=== PATIENT | male | born 1975 | race Caucasian/White ===

== ENCOUNTER 2017-06-19 17:04 | Emergency (ER) | payer OTHER ==
[2017-06-19 17:34] VITALS: BMI 27.3
[2017-06-19 17:36] VITALS: TEMP 98.1
--- NOTE | 2017-06-19 18:32 | C.PDOC ---
History Of Present Illness 42 y/o male presents to ED with complaints of right foot swelling for 1 month. ( +) pain with walking. Patient was seen by PMD - Dr. Moran for evaluation who ordered xray, labs, and doppler with negative results. (Copies of labs reviewed ) Patient denies fever, recent trauma, n/v/d, weakness, numbness or any other complaints at this time. Time Seen by Provider: 06/19/17 17:50 Chief Complaint (Nursing): Lower Extremity Problem/Injury History Per: Patient History/Exam Limitations: no limitations Onset/Duration Of Symptoms: Days Current Symptoms Are (Timing): Still Present Past Medical History Reviewed: Historical Data, Nursing Documentation, Vital Signs Vital Signs: Last Vital Signs Temp 98.1 F 06/19/17 17:36 Pulse 78 06/19/17 19:41 Resp 16 06/19/17 19:41 BP 125/74 06/19/17 19:41 Pulse Ox 95 06/19/17 20:29 Family History: States: No Known Family Hx - Social History Hx Alcohol Use: Yes Hx Substance Use: No - Immunization History Hx Tetanus Toxoid Vaccination: No Hx Influenza Vaccination: No Hx Pneumococcal Vaccination: No Review Of Systems Except As Marked, All Systems Reviewed And Found Negative. Constitutional: Negative for: Fever, Chills Gastrointestinal: Negative for: Nausea, Vomiting, Diarrhea Musculoskeletal: Positive for: Leg Pain Skin: Negative for: Rash Neurological: Negative for: Weakness, Numbness Physical Exam - Physical Exam Appears: Non-toxic, No Acute Distress Skin: Normal Color, Warm, Dry Head: Atraumatic, Normacephalic Eye(s): bilateral: Normal Inspection, EOMI Nose: Normal Oral Mucosa: Moist Chest: Symmetrical Cardiovascular: Rhythm Regular Respiratory: Normal Breath Sounds, No Accessory Muscle Use Extremity: Normal ROM, Tenderness (Mild tenderness to plantar foot ), No Calf Tenderness, Capillary Refill (<2 seconds), Swelling (Diffuse swelling to right foot), Other ((- )erythema or increased warmth) Extremity: Bilateral: Normal Color And Temperature, Normal ROM Pulses: Left Dorsalis Pedis: Normal, Right Dorsalis Pedis: Normal Neurological/Psych: Oriented x3, Normal Motor, Normal Sensation Gait: Steady ED Course And Treatment O2 Sat by Pulse Oximetry: 95 (RA) Progress Note: Discussed with Dr. Moran who agreed for outpatient PO antibiotics. Discussed with Dr. Escalante who evaluated pt at bedside and agreed with plan and treatment. Willard wrap put on right foot and instructed to RICE and follow up with Ortho in 1-2 days. Reevaluation Time: 18:15 (On reassessment, patient is resting comfortably, and is in no acute distress. Patient was instructed to follow up with physician/ clinic in 1-2 days for further evaluation.) Reassessment Condition: Improved Disposition - Disposition Referrals: Rosa House MD [Staff Provider] - Nito Moran DO [Staff Provider] - Disposition: HOME/ ROUTINE Disposition Time: 18:29 Condition: STABLE Additional Instructions: Rest, ice and elevate the area. Follow up with bone doctor in 1-2 days. Return to ER if symptoms persist or worsen. Prescriptions: Cephalexin [cephalexin] 500 mg PO BID #14 cap Naproxen [Naprosyn] 1 tab PO BID PRN #20 tab PRN Reason: Pain Instructions: Foot Sprain (ED) - Clinical Impression Clinical Impression: Foot swelling - Scribe Statement The provider has reviewed the documentation as recorded by the Scribmal Pete All medical record entries made by the Lat[place]ibmal were at my direction and personally dictated by me. I have reviewed the chart and agree that the record accurately reflects my personal performance of the history, physical exam, medical decision making, and the department course for this patient. I have also personally directed, reviewed, and agree with the discharge instructions and disposition.
[2017-06-19 19:42] VITALS: BP 125/74; PULSE 78; RESP 16
[2017-06-19 20:24] VITALS: O2SAT 95
== END 2017-06-19 19:41 | disposition home or self-care (01) ==
LOC: C.ER 17:04
DX: M79.89 Other specified soft tissue disorders (principal)